=== PATIENT | male | born 1975 | race Caucasian/White ===

== ENCOUNTER → 2022-01-08 15:22 | Outpatient (BNVA) | payer BC, SELFPAY | PROVIDERS: PCP Pediatrics; Visit Provider Hospitalist | DX: Z13.89 Encounter for screening for other disorder (principal) ==

== ENCOUNTER → 2023-01-29 15:21 | Outpatient (BNVA) | payer BC, SELFPAY | PROVIDERS: PCP Pediatrics; Visit Provider Hospitalist | DX: Z13.89 Encounter for screening for other disorder (principal) ==